=== PATIENT | male | born 1990 | race Caucasian/White ===

== ENCOUNTER 2016-10-06 14:23 | Emergency (ER) | payer OTHER ==
[2016-10-06 15:11] LABS: BASOPHIL 0.5 % (0-2); EOSINOPHIL 1.3 % (0-5); HCT 42.2 % (42.0-52.0); HGB 14.8 g/dl (13.2-18.0); LYMPHOCYTE 32.9 % (15-48); MCH 30.1 pg (25.0-31.0); MCHC 35.1 g/dL (32.0-36.0); MCV 85.8 fL (78.0-100.0); MONOCYTE 4.9 % (0-12); MPV 10.6 fL (6.0-9.5); NEUTROPHIL 60.4 % (41-80); PLT 211 K/uL (150-400); RBC 4.92 M/uL (4.70-6.00); RDW 12.9 % (11.5-14.0); WBC 8.4 K/uL (4.0-10.5)
[2016-10-06 15:20] LABS: ALBUMIN 4.7 g/dL (3.5-5.0); BILIRUBIN - TOTAL 0.5 mg/dL (0.1-1.0); GLOBULIN (CALCULATION) 2.6 g/dL (2.2-4.2); TOTAL PROTEIN 7.3 g/dL (6.4-8.3)
[2016-10-06 16:56] LABS: BILIRUBIN NEGATIVE (NEGATIVE); BLOOD NEGATIVE Ery/uL (NEGATIVE); CLARITY CLEAR (CLEAR); COLOR YELLOW (YELLOW); GLUCOSE (U) NORMAL (NORMAL); KETONE (U) NEGATIVE (NEGATIVE); LEUKOCYTES NEGATIVE Leu/uL (NEGATIVE); NITRITE NEGATIVE (NEGATIVE); PROTEIN NEGATIVE (NEGATIVE); SPECIFIC GRAVITY <=1.005 (1.001-1.030); UROBILINOGEN 0.2 mg/dL (0.2-1.0)
[2016-10-06 17:12] LABS: AMPHETAMINES NEGATIVE (NEGATIVE); BARBITURATES NEGATIVE (NEGATIVE); BENZODIAZEPINES NEGATIVE (NEGATIVE); COCAINE NEGATIVE (NEGATIVE); MARIJUANA (THC) POSITIVE (NEGATIVE); TRICYCLIC ANTIDEPRESSANT NEGATIVE (NEGATIVE)
[2016-10-06 17:13] LABS: METHADONE NEGATIVE (NEGATIVE)
== END 2016-10-06 17:23 | disposition home or self-care (01) ==
LOC: FER 14:23
PROVIDERS: Nurse Practitioner
DX: R07.9 Chest pain, unspecified (principal)
CPT/HCPCS: 36415; 71010; 80053; 80305; 81003; 84484; 85025; 85379